=== PATIENT | male | born 1970 | race Caucasian/White ===

== ENCOUNTER 2016-10-21 22:46 | Emergency (ER) | payer SELFPAY ==
[~2016-10-21] VITALS: Ht 160 cm; Wt 80.8 kg
[2016-10-22 00:10] VITALS: BP 127/80
== END 2016-10-22 01:32 | disposition home or self-care (01) ==
LOC: ED 22:46
DX: K52.9 Noninfective gastroenteritis and colitis, unspecified (principal); Z79.1 Long term (current) use of non-steroidal anti-inflammatories (NSAID)
CPT/HCPCS: J1885